=== PATIENT | male | born 1955 | race Caucasian/White ===

== ENCOUNTER 2020-07-10 10:21 | Emergency (ER) | payer BC, OTHER ==
[2020-07-10] MEDS ORDERED: Sodium Chloride 0.9% 1,000 ML IV STA ×2 (11:27→12:29)
--- NOTE | 2020-07-10 12:59 | EDM.PDOC ---
ED HPI GENERAL MEDICAL PROBLEM - General Chief Complaint: Gastrointestinal Problem Stated Complaint: DIAHRRHEA/STOMACH PAIN/PALE/DIZZY Time Seen by Provider: 07/10/20 11:02 Source of Information: Reports: Patient History Limitations: Reports: No Limitations - History of Present Illness INITIAL COMMENTS - FREE TEXT/NARRATIVE: Patient is a 65-year-old male presenting to the emergency department after having an episode of recurrent bowel movements and diarrhea accompanied by abdominal cramping and dizziness with diaphoresis. He was at work this morning. States he ate about 4 almonds and after that he experienced some fairly intense abdominal cramping. He went to the bathroom and had a large formed bowel movement. As he continued to go, the stools became progressively loose. He had to stop a number of times on the way to the ER to have bowel movements states each time that he went he got very sweaty and dizzy. He states he has had episodes similar to this in the past. He now complains of generalized abdominal pain and dizziness with standing. He reports that he drinks a lot of diet Mountain Dew and only 1 or 2 bottles of water per day. He has a history of type [address] Snell as a primary care provider. He states prior to this episode this morning he was feeling well. Denies any fever, chills, nausea, vomiting. He has not eaten any questionable foods recently. Abdomen Pain Score (Numeric/FACES): 5 - Related Data Allergies Allergy/AdvReac Type Severity Reaction Status Date / Time No Known Allergies Allergy Verified 07/10/20 10:43 Home Meds: Home Meds Aspirin 81 mg PO DAILY 07/10/20 [History] Lisinopril/Hydrochlorothiazide [Lisinopril-Hctz 20-25 mg Tab] 1 tab PO DAILY 07/10/20 [History] Multivitamin [Multivitamins] 1 cap PO DAILY 07/10/20 [History] Pravastatin [Pravachol] 40 mg PO DAILY 07/10/20 [History] sitaGLIPtin Phos/Metformin HCl [Janumet 50-1,000 MG] 1 tab PO BID 07/10/20 [History] Past Medical History HEENT History: Reports: Impaired Vision Cardiovascular History: Reports: High Cholesterol, Hypertension Endocrine/Metabolic History: Reports: Diabetes, Type II - Infectious Disease History Infectious Disease History: Reports: Chicken Pox - Past Surgical History GI Surgical History: Reports: Colonoscopy Social & Family History - Tobacco Use Tobacco Use Status *Q: Former Tobacco User Used Tobacco, but Quit: Yes Month/Year Tobacco Last Used: 2009 - Caffeine Use Caffeine Use: Reports: Soda - Recreational Drug Use Recreational Drug Use: No ED ROS GENERAL - Review of Systems Review Of Systems: See Below Constitutional: Reports: Weakness, Diaphoresis. Denies: Fever, Chills HEENT: Reports: No Symptoms Respiratory: Reports: No Symptoms. Denies: Shortness of Breath, Cough Cardiovascular: Reports: Lightheadedness Endocrine: Reports: No Symptoms GI/Abdominal: Reports: Abdominal Pain, Diarrhea, Nausea. Denies: Vomiting : Reports: No Symptoms Musculoskeletal: Reports: No Symptoms Skin: Reports: No Symptoms Neurological: Reports: No Symptoms Psychiatric: Reports: No Symptoms Hematologic/Lymphatic: Reports: No Symptoms Immunologic: Reports: No Symptoms ED EXAM, GI/ABD - Physical Exam Exam: See Below General Appearance: Alert, WD/WN, No Apparent Distress Eyes: Bilateral: Normal Appearance Respiratory/Chest: No Respiratory Distress, Lungs Clear, Normal Breath Sounds, No Accessory Muscle Use, Chest Non-Tender Cardiovascular: Normal Peripheral Pulses, Regular Rate, Rhythm, No Edema, No Gallop, No JVD, No Murmur, No Rub GI/Abdominal Exam: Normal Bowel Sounds, Soft, No Organomegaly, No Distention, No Abnormal Bruit, No Mass, Pelvis Stable, Tender (generalized tenderness throughout the mid-abdomen) Neurological: Alert, Oriented, CN II-XII Intact, Normal Cognition, Normal Gait, Normal Reflexes, No Motor/Sensory Deficits Psychiatric: Normal Affect, Normal Mood Skin Exam: Warm, Dry, Intact, Normal Color, No Rash Course - Vital Signs Last Recorded V/S: Last Vital Signs Temp 96.9 F 07/10/20 10:38 Pulse 77 07/10/20 10:38 Resp 18 07/10/20 10:38 BP 118/84 07/10/20 10:38 Pulse Ox 98 07/10/20 10:38 Orthostatic Blood Pressure [ 139/117 Standing] Orthostatic Blood Pressure [ 103/82 Sitting] Orthostatic Blood Pressure [ 117/86 Supine] - Orders/Labs/Meds Orders: Active Orders 24 hr Category Date Time Status EKG Documentation Completion [RC] STAT Care 07/10/20 12:30 Active Orthostatic Vital Signs [RC] ASDIRECTED Care 07/10/20 11:04 Active Abdomen Pelvis w Cont [CT] Stat Exams 07/10/20 12:29 Taken CORONAVIRUS COVID-19 PCR PHL Routine Lab 07/10/20 15:29 Ordered Sodium Chloride 0.9% [Normal Saline] 1,000 ml Med 07/10/20 12:29 Active IV NOW Sodium Chloride 0.9% [Saline Flush] Med 07/10/20 13:12 Active 10 ml FLUSH ONETIME PRN Medication Orders Sodium Chloride (Normal Saline) 1,000 mls @ 150 mls/hr IV NOW STA Stop: 07/10/20 19:08 Last Admin: 07/10/20 13:10 Dose: 150 mls/hr Documented by: SERVANDO Sodium Chloride (Saline Flush) 10 ml FLUSH ONETIME PRN PRN Reason: IV FLUSH Last Admin: 07/10/20 13:44 Dose: 10 ml Documented by: MARIA D Labs: Laboratory Tests 07/10/20 07/10/20 07/10/20 Range/Units 11:39 11:39 12:50 WBC 17.84 H (4.23-9.07) K/mm3 RBC 6.02 (4.63-6.08) M/mm3 Hgb 16.9 (13.7-17.5) gm/dl Hct 51.6 H (40.1-51.0) % MCV 85.7 (79.0-92.2) fl MCH 28.1 (25.7-32.2) pg MCHC 32.8 (32.2-35.5) g/dl RDW Std Deviation 45.3 H (35.1-43.9) fL Plt Count 267 (163-337) K/mm3 MPV 11.2 (9.4-12.3) fl Neut % (Auto) 86.8 H (34.0-67.9) % Lymph % (Auto) 6.8 L (21.8-53.1) % [place] % (Auto) 5.3 (5.3-12.2) % Eos % (Auto) 0.7 L (0.8-7.0) Baso % (Auto) 0.1 (0.1-1.2) % Neut # (Auto) 15.50 H (1.78-5.38) K/mm3 Lymph # (Auto) 1.21 L (1.32-3.57) K/mm3 [place] # (Auto) 0.94 H (0.30-0.82) K/mm3 Eos # (Auto) 0.13 (0.04-0.54) K/mm3 Baso # (Auto) 0.01 (0.01-0.08) K/mm3 Manual Slide Review Abnormal smear Sodium 134 L (136-145) mEq/L Potassium 5.3 H (3.5-5.1) mEq/L Chloride 97 L (98-107) mEq/L Carbon Dioxide 25 (21-32) mEq/L Anion Gap 17.3 H (5-15) BUN 20 H (7-18) mg/dL Creatinine 1.8 H (0.7-1.3) mg/dL Est Cr Clr Drug Dosing 42.25 mL/min Estimated GFR (MDRD) 38 (>60) mL/min BUN/Creatinine Ratio 11.1 L (14-18) Glucose 226 H (80-115) mg/dL Calcium 8.8 (8.5-10.1) mg/dL Total Bilirubin 0.4 (0.2-1.0) mg/dL AST 18 (15-37) U/L ALT 26 (16-63) U/L Alkaline Phosphatase 56 (46-116) U/L Troponin I < 0.017 (0.00-0.056) ng/mL C-Reactive Protein <0.2 (<1.0) mg/dL Total Protein 7.8 (6.4-8.2) g/dl Albumin 4.3 (3.4-5.0) g/dl Globulin 3.5 gm/dL Albumin/Globulin Ratio 1.2 (1-2) Lipase 159 (73-393) U/L Urine Color (Yellow) Urine Appearance (Clear) Urine pH (5.0-8.0) Ur Specific [place] (1.005-1.030) Urine Protein (Negative) Urine Glucose (UA) (Negative) Urine Ketones (Negative) Urine Occult Blood (Negative) Urine Nitrite (Negative) Urine Bilirubin (Negative) Urine Urobilinogen (0.2-1.0) Ur Leukocyte Esterase (Negative) U Hyaline Cast (Auto) (0-5) /lpf Urine RBC (0-5) /hpf Urine WBC (0-5) /hpf Ur Squamous Epith Cells (0-5) /hpf Urine Bacteria (FEW) /hpf Urine Mucus (FEW) /hpf 07/10/20 Range/Units 14:25 WBC (4.23-9.07) K/mm3 RBC (4.63-6.08) M/mm3 Hgb (13.7-17.5) gm/dl Hct (40.1-51.0) % MCV (79.0-92.2) fl MCH (25.7-32.2) pg MCHC (32.2-35.5) g/dl RDW Std Deviation (35.1-43.9) fL Plt Count (163-337) K/mm3 MPV (9.4-12.3) fl Neut % (Auto) (34.0-67.9) % Lymph % (Auto) (21.8-53.1) % [place] % (Auto) (5.3-12.2) % Eos % (Auto) (0.8-7.0) Baso % (Auto) (0.1-1.2) % Neut # (Auto) (1.78-5.38) K/mm3 Lymph # (Auto) (1.32-3.57) K/mm3 [place] # (Auto) (0.30-0.82) K/mm3 Eos # (Auto) (0.04-0.54) K/mm3 Baso # (Auto) (0.01-0.08) K/mm3 Manual Slide Review Sodium (136-145) mEq/L Potassium (3.5-5.1) mEq/L Chloride (98-107) mEq/L Carbon Dioxide (21-32) mEq/L Anion Gap (5-15) BUN (7-18) mg/dL Creatinine (0.7-1.3) mg/dL Est Cr Clr Drug Dosing mL/min Estimated GFR (MDRD) (>60) mL/min BUN/Creatinine Ratio (14-18) Glucose (80-115) mg/dL Calcium (8.5-10.1) mg/dL Total Bilirubin (0.2-1.0) mg/dL AST (15-37) U/L ALT (16-63) U/L Alkaline Phosphatase (46-116) U/L Troponin I (0.00-0.056) ng/mL C-Reactive Protein (<1.0) mg/dL Total Protein (6.4-8.2) g/dl Albumin (3.4-5.0) g/dl Globulin gm/dL Albumin/Globulin Ratio (1-2) Lipase (73-393) U/L Urine Color Yellow (Yellow) Urine Appearance Clear (Clear) Urine pH 5.5 (5.0-8.0) Ur Specific [place] 1.020 (1.005-1.030) Urine Protein Trace H (Negative) Urine Glucose (UA) Negative (Negative) Urine Ketones Negative (Negative) Urine Occult Blood Negative (Negative) Urine Nitrite Negative (Negative) Urine Bilirubin Negative (Negative) Urine Urobilinogen 0.2 (0.2-1.0) Ur Leukocyte Esterase Negative (Negative) U Hyaline Cast (Auto) 20-30 H (0-5) /lpf Urine RBC 0-5 (0-5) /hpf Urine WBC 0-5 (0-5) /hpf Ur Squamous Epith Cells 0-5 (0-5) /hpf Urine Bacteria Few (FEW) /hpf Urine Mucus Few (FEW) /hpf Meds: Medications Generic Name Dose Route Start Last Admin Trade Name Freq PRN Reason Stop Dose Admin Sodium Chloride 1,000 mls @ 150 mls/hr 07/10/20 12:29 07/10/20 13:10 Normal Saline IV 07/10/20 19:08 150 mls/hr NOW STA Administration Sodium Chloride 10 ml 07/10/20 13:12 07/10/20 13:44 Saline Flush FLUSH 10 ml ONETIME PRN Administration IV FLUSH Discontinued Medications Generic Name Dose Route Start Last Admin Trade Name Freq PRN Reason Stop Dose Admin Diatrizoate Meglum/Diatrizoate Sod 120 ml 07/10/20 13:12 07/10/20 13:44 Gastrografin 37% PO 07/10/20 13:13 90 ml ONETIME ONE Administration Sodium Chloride 1,000 mls @ 999 mls/hr 07/10/20 11:27 07/10/20 11:47 Normal Saline IV 07/10/20 12:27 999 mls/hr NOW STA Administration Iopamidol 100 ml 07/10/20 13:12 07/10/20 13:44 Isovue-300 (61%) IVPUSH 07/10/20 13:13 100 ml ONETIME ONE Administration - Re-Assessments/Exams Free Text/Narrative Re-Assessment/Exam: Patient is a 65-year-old male presenting to the emergency department with complaints of abdominal pain, diffuse watery diarrhea, nausea, dizziness, and diaphoresis. Orthostatic vital signs were completed, however nursing staff states that when he stood he got quite dizzy and by the time the blood pressure actually cycled, his dizziness had improved, therefore it is likely inaccurate. Have ordered a CBC, CMP, CRP, urinalysis, and a 1 L bolus of normal saline. 07/10/20 13:00 Hematology was significant for WBC elevated at 17.84, sodium 134, potassium minimally high at 5.3, chloride 97, anion gap 17.3, BUN 20, creatinine 1.8, glucose 226. Patient is very concerned that he could have some intra-abdominal process going on. His elevated white count could be due to a stress response versus infection. He is obviously dry based on his labs. I have ordered a second liter of normal saline bolus and CT scan of the abdomen pelvis contrast. 07/10/20 15:31 CT scan of the abdomen pelvis showed: 1. Small of ascites. 2 diffuse fatty infiltration of the liver. 3. Mild atrophic right kidney. Urinalysis was negative for infection. Discussed with patient that he is likely suffering from a viral gastroenteritis, however COVID-19 is not out of the differential. His diaphoresis and dizziness were likely due to stimulation of the vagus nerve while having a large bowel movement. We will complete a state send out coronavirus test. Recommend that he follow-up with his primary care provider next week to ensure that his lab values have corrected. He should return to the emergency department with any new or worsening symptoms of concern. Departure - Departure Time of Disposition: 15:32 Disposition: Home, Self-Care 01 Condition: Good Clinical Impression: Abdominal pain Diarrhea Qualifiers: Diarrhea type: unspecified type Qualified Code(s): R19.7 - Diarrhea, unspecified - Discharge Information *PRESCRIPTION DRUG MONITORING PROGRAM REVIEWED*: No *COPY OF PRESCRIPTION DRUG MONITORING REPORT IN PATIENT SAMEERA: No Instructions: Abdominal Pain, Adult, [id number], Diarrhea, Adult Referrals: Gustavo Kaur MD [Primary Care Provider] - Forms: ED Department Discharge Additional Instructions: You were seen in the emergency department for abdominal pain and a number of episodes of watery diarrhea accompanied by sweating and lightheadedness. Your work-up in the ER included blood work, urinalysis, and EKG of your heart, and a CT scan of your abdomen pelvis. Results of your blood work showed that you were dehydrated. Your cardiac work-up was found to be normal. The CT scan of your abdomen and pelvis showed diffuse fatty infiltrates of your liver as well as one kidney being smaller than the other and a small amount of ascites. Your stomach and bowels were all found to be normal. I suspect that you are suffering from a viral gastroenteritis (stomach flu). Recommend clear liquid diet for the next 24 to 48 hours and then advance as tolerated. I would like you to follow-up with your primary care provider early next week to have your lab values rechecked and discussed with him the problems you have been having with regards to this issue. A COVID-19 test has been completed today. He will be notified when results are available which is done within 24 to 72 hours. Recommend that you stay home from work until these results are available. If you experience any new or worsening symptoms of concern, please not hesitate to return to the emergency department for reevaluation. Sepsis Event Note (ED) - Evaluation Sepsis Screening Result: No Definite Risk - Focused Exam Vital Signs: Vital Signs Temp Pulse Resp BP Pulse Ox 07/10/20 10:38 96.9 F 77 18 118/84 98 - My Orders Last 24 Hours: My Active Orders 07/10/20 11:04 Orthostatic Vital Signs [RC] ASDIRECTED 07/10/20 12:29 Abdomen Pelvis w Cont [CT] Stat Sodium Chloride 0.9% [Normal Saline] 1,000 ml IV NOW 07/10/20 12:30 EKG Documentation Completion [RC] STAT 07/10/20 13:12 Sodium Chloride 0.9% [Saline Flush] 10 ml FLUSH ONETIME PRN 07/10/20 15:29 CORONAVIRUS COVID-19 PCR PHL Routine - Assessment/Plan Last 24 Hours: My Active Orders 07/10/20 11:04 Orthostatic Vital Signs [RC] ASDIRECTED 07/10/20 12:29 Abdomen Pelvis w Cont [CT] Stat Sodium Chloride 0.9% [Normal Saline] 1,000 ml IV NOW 07/10/20 12:30 EKG Documentation Completion [RC] STAT 07/10/20 13:12 Sodium Chloride 0.9% [Saline Flush] 10 ml FLUSH ONETIME PRN 07/10/20 15:29 CORONAVIRUS COVID-19 PCR PHL Routine
[2020-07-10] MEDS ORDERED: Iopamidol 612 MG/ML 100 ML Bottle IVPUSH ONE (13:12)
[2020-07-10] MEDS ORDERED: Diatrizoate Meglumine/Diatrizoate Sodium 37% 120 ML Bottle PO ONE (13:12)
[2020-07-10] MEDS ORDERED: Sodium Chloride 0.9% 10 ML Syringe FLUSH PRN (13:12)
== END 2020-07-10 16:19 | disposition home or self-care (01) ==
LOC: JD.ED 10:21
DX: R19.7 Diarrhea, unspecified (principal); R10.84 Generalized abdominal pain; R42 Dizziness and giddiness; R61 Generalized hyperhidrosis; U07.1 COVID-19; E78.00 Pure hypercholesterolemia, unspecified; I10 Essential (primary) hypertension; E11.9 Type 2 diabetes mellitus without complications; Z79.84 Long term (current) use of oral hypoglycemic drugs; Z79.899 Other long term (current) drug therapy; Z87.891 Personal history of nicotine dependence
CPT/HCPCS: 36415; 74177; 80053; 81001; 83690; 84484; 85025; 86140; 87635; 93005; 99284; J7030; Q9963; Q9967; 93010; U0002